=== PATIENT | female | born 1985 | race Caucasian/White ===

== ENCOUNTER 2016-10-27 12:28 | Day surgery (SDC) | payer OTHER, SELFPAY ==
[~2016-10-27 12:28] MED LIST: ALPRAZOLAM0.5 M3 PO; AMOXIL500 MG; ANAPROX DS550 MG PO; BUPROPION XL150 M1 PO; ELINEST1 EACH PO; IBUPROFEN; IBUPROFEN800 M1 PO; MULTIVITAMIN1 TAB PO; NORCO 5-325 TA1 EACH PO; NORCO 5/325 TAB1 TAB PO; NORCO 5/3251 TA1 PO; NORCO 7.5/325 T1 TAB PO; PERCOCET 5-3251 EACH PO; PRENATAL1 TAB; WELLBUTRIN PO; ZITHROMAX250MG Z-PAK PO; ZOFRAN4 MG PO
== END 2016-10-27 16:27 ==
LOC: SHSB 12:28 → PACU 14:00 → SHSB 14:19 → ORW 15:07 → SHSB 15:20
PROC: 0UBG7ZZ Excision of Vagina, Via Natural or Artificial Opening (ICD-10-PCS; principal; 2016-10-27)
DX: N76.5 Ulceration of vagina (principal); F41.9 Anxiety disorder, unspecified; F32.9 Major depressive disorder, single episode, unspecified; J45.909 Unspecified asthma, uncomplicated; Z79.899 Other long term (current) drug therapy; Z88.0 Allergy status to penicillin; Z88.1 Allergy status to other antibiotic agents; Z88.5 Allergy status to narcotic agent; Z87.891 Personal history of nicotine dependence; Z90.49 Acquired absence of other specified parts of digestive tract; Z90.89 Acquired absence of other organs; Z90.710 Acquired absence of both cervix and uterus; Z98.890 Other specified postprocedural states
CPT/HCPCS: J2175